=== PATIENT | male | born 2000 | race Caucasian/White ===

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

== ENCOUNTER → 2025-07-20 | Outpatient (CLI) | payer OTHER, SELFPAY | END | disposition home or self-care (01) | LOC: LABSPEC 16:19 | PROVIDERS: PCP Family Medicine; Visit Provider Ophthalmology | DX: H00.031 Abscess of right upper eyelid (principal) | CPT/HCPCS: 87070; 87075; 87077; 87186; 87205 ==